=== PATIENT | female | born 1945 | race Caucasian/White ===

== ENCOUNTER 2023-09-01 09:46 | Emergency (ER) | payer OTHER ==
[2023-09-01 10:27] LABS: Absolute Eosinophils 0.1 K/uL (0-0.5); Absolute Lymphocytes (CBC) 0.5 K/uL (0.7-4.9); Absolute Monocytes 0.5 K/uL (0.1-1.3); Absolute Neutrophil 3.6 K/uL (1.8-8.0); Basophils % 0.5 % (0-1.3); Eosinophils % 2.2 % (0-4.4); Hematocrit 29.1 % (36.0-45.0); Hemoglobin 9.6 g/dL (12.0-15.0); MCH 27.5 pg (27.0-35.0); MCHC 32.9 g/dL (32.0-36.0); MCV 83.5 fL (80-100); MPV 8.1 fL (7.6-11.3); Monocytes % 9.8 % (3.3-12.3); Neutrophils % 76.5 % (41.7-73.7); Platelets 143 thou/uL (152-406); RBC Red Blood Cell Count 3.48 M/uL (3.86-4.86); Red Cell Distribution Width 15.2 % (12.1-15.2)
[2023-09-01 10:45] LABS: Anion Gap 5.7 mEq/L (5.0-15.0); Potassium 3.7 mEq/L (3.5-5.1); Troponin High Sensitivity 36.3 pg/mL (<58.9)
--- NOTE | 2023-09-01 10:45 | RAD REPORT ---
EXAM DESCRIPTION: CT - Head Brain Wo Cont - 09/01/2023 10:28 am CLINICAL HISTORY: DIZZINESS Headache, drowsiness dizziness COMPARISON: No comparisons TECHNIQUE: All CT scans are performed using dose optimization technique as appropriate and may inclu de automated exposure control or mA/KV adjustment according to patient size. FINDINGS: No intracranial hemorrhage, hydrocephalus or extra-axial fluid collection.No areas of brai n edema or evidence of midline shift. Vertebral atherosclerosis. The paranasal sinuses and mastoids are clear. The calvarium is intact. IMPRESSION: No acute intracranial abnormality.
--- NOTE | 2023-09-01 10:47 | RAD REPORT ---
EXAM DESCRIPTION: RAD - Chest Single View - 09/01/2023 10:37 am CLINICAL HISTORY: dizziness Chest pain. COMPARISON: <Comparisons> FINDINGS: Portable technique limits examination quality. Mild interstitial pulmonary edema. The heart is moderately enlarged. No displaced fractures. IMPRESSION: Mild CHF.
[2023-09-01 12:11] LABS: Specific Gravity 1.024 (1.005-1.030); Sqamous Epithelial <5 /HPF (None Seen); Urine Bacteria None Seen /HPF (<20); Urine Bilirubin NEGATIVE (Negative); Urine Blood Negative (Negative); Urine Clarity Clear (Clear); Urine Color Yellow (Yellow); Urine Culture Reflex Order NOT NEEDED; Urine Glucose NEGATIVE (Negative); Urine Ketones NEGATIVE (Negative); Urine Microscopic Reflex YN ORDER UMIC; Urine Mucus Slight /HPF (None Seen); Urine Nitrite NEGATIVE (Negative); Urine Protein NEGATIVE (Negative); Urine RBC <5 /HPF (None Seen); Urine Urobilinogen Normal (Normal); Urine WBC <5 /HPF (<5); Urine pH 5.5 (5.0-7.0)
--- NOTE | 2023-09-01 12:16 | EDPHYS ---
Physician Documentation [facility] Name: Maile Barrow Age: 78 yrs Sex: Female : 1945 Arrival Date: 09/01/2023 Time: 09:46 Bed 7 Private MD: ED Physician Marco Antonio Nicholson HPI: 08/31 10:08 This 78 yrs old Female presents to ER via EMS with complaints of Dizziness. jh7 10:08 The patient presents with dizziness, lightheadedness, feeling off balance. Onset: The jh7 symptoms/episode began/occurred acutely. Context: occurred at a care home or assisted living facility, occurred while the patient was on the toilet. Associated signs and symptoms: Pertinent positives: diaphoresis, shortness of breath, Pertinent negatives: abdominal pain, confusion, headache, palpitations, vomiting. 78-year-old female with a past medical history of hypertension, high cholesterol, and bilateral carotid endarterectomy this past Sunday presents to the ER for dizziness. She reports that she was on the toilet, attempted to get up, and suddenly became dizzy, lightheaded, diaphoretic, and short of breath. She reported that she stayed on the toilet to avoid falling and then called 911. 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 Denies chest pain, unilateral weakness, speech changes, N/V/D, syncope or visual changes.. Historical: - Allergies: 10:03 Codeine; ll1 - Home Meds: 10:03 Plavix Oral [Active]; tramadol Oral [Active]; mycophenolate mofetil 500 mg oral tablet ll1 [Active]; enalapril maleate 10 mg Oral tablet [Active]; Nexium Oral [Active]; aspirin 81 mg Oral capsule [Active]; Vitamin D Oral [Active]; multivitamin with minerals-folic acid-lycopene oral [Active]; hydrochlorothiazide 25 mg oral tablet [Active]; rosuvastatin 20 mg oral tablet [Active]; - PMHx: 10:03 Hypertensive disorder; Hypercholesterolemia; ll1 - PSHx: 10:03 R carotid blockage surgery; ll1 - Immunization history:: Adult Immunizations up to date. - Infectious Disease History:: Denies. - Social history:: Smoking status: Patient denies any tobacco usage or history of. ROS: 10:08 Constitutional: Per HPI jh7 Exam: 10:08 Constitutional: This is a well developed, well nourished patient who is awake, alert, jh7 and in no acute distress. Head/Face: Normocephalic, atraumatic. Eyes: Pupils equal round and reactive to light, extra-ocular motions intact. Lids and lashes normal. Conjunctiva and sclera are non-icteric and not injected. Cornea within normal limits. Periorbital areas with no swelling, redness, or edema. Neck: Trachea midline, no thyromegaly or masses palpated, and no cervical lymphadenopathy. Supple, full range of motion without nuchal rigidity, or vertebral point tenderness. No Meningismus. Cardiovascular: Regular rate and rhythm with a normal S1 and S2. No gallops, murmurs, or rubs. Normal PMI, no JVD. No pulse deficits. Respiratory: Lungs have equal breath sounds bilaterally, clear to auscultation and percussion. No rales, rhonchi or wheezes noted. No increased work of breathing, no retractions or nasal flaring. Abdomen/GI: Soft, non-tender, with normal bowel sounds. No distension or tympany. No guarding or rebound. No evidence of tenderness throughout. Back: No spinal tenderness. No costovertebral tenderness. Full range of motion. Skin: Warm, dry with normal turgor. Normal color with no rashes, no lesions, and no evidence of cellulitis. MS/ Extremity: Pulses equal, no cyanosis. Neurovascular intact. Full, normal range of motion. Neuro: Awake and alert, GCS 15, oriented to person, place, time, and situation. Cranial nerves II-XII grossly intact. Sensory grossly intact. Cerebellar exam normal. Vital Signs: 10:01 BP 120 / 57; Pulse 62; Resp 16; Temp 97.9; Pulse Ox 100% on 2 lpm NC; Weight 95.25 kg; ll1 Height 5 ft. 1 in. ; Pain 0/10; 12:17 BP 119 / 67; Pulse 61; Resp 16 S; Pulse Ox 100% on R/A; as6 10:01 Body Mass Index 39.68 (95.25 kg, 154.94 cm) ll1 10:01 Pain Scale: Adult ll1 MDM: 10:01 Patient medically screened. [facility] 12:15 Differential diagnosis: cardiac arrhythmia, CVA, generalized weakness, hypovolemia, jh7 idiopathic dizziness, near-syncope, sepsis, syncope, vertigo. Data reviewed: vital signs, nurses notes, lab test result(s), EKG, radiologic studies, CT scan, plain films. I considered the following discharge prescriptions or medication management in the emergency department Medications were administered in the Emergency Department. See MAR. Independent interpretation of the following test(s) in the Emergency Department EKG: See my EKG interpretation above. Historians other than the Patient: Daughter/Son: daughter. Care significantly affected by the following chronic conditions: Hypertension. Counseling: I had a detailed discussion with the patient and/or guardian regarding the historical points, exam findings, and any diagnostic results supporting the discharge/admit diagnosis, to return to the emergency department if symptoms worsen or persist or if there are any questions or concerns that arise at home. Response to treatment: the patient's symptoms have markedly improved after treatment. ED course: Patient stated that her symptoms were much improved at the time of discharge. All questions and concerns were addressed and the patient was able to ambulate to her wheelchair with a steady gait. 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 Advised to return to the ER with any new concerning symptoms.. 08/31 10:11 Order name: Basic Metabolic Panel; Complete Time: [facility] 08/31 10:11 Order name: CBC with Diff; Complete Time: [facility] 08/31 10:11 Order name: Troponin HS; Complete Time: [facility] 08/31 10:11 Order name: Urinalysis w/ reflexes; Complete Time: 12:13 [facility] 08/31 10:11 Order name: XRAY Chest (1 view); Complete Time: [facility] 08/31 10:11 Order name: CT Head Brain wo Cont; Complete Time: [facility] 08/31 10:11 Order name: Cardiac monitoring; Complete Time: [facility] 08/31 10:11 Order name: EKG - Nurse/Tech; Complete Time: : [facility] 08/31 10:11 Order name: IV Saline Lock; Complete Time: [facility] 08/31 10:11 Order name: Labs collected and sent; Complete Time: : [facility] 08/31 10:11 Order name: O2 Per Protocol; Complete Time: [facility] 08/31 10:11 Order name: O2 Sat Monitoring; Complete Time: : [facility] EC:13 Rate is 65 beats/min. Rhythm is regular. Left axis deviation noted. NE interval is [facility] normal at 146 msec. QRS interval is normal at 96 msec. QT interval is normal at 412 msec. No Q waves. T waves are Normal. No ST changes noted. Clinical impression: Sinus rhythm with premature atrial complexes . Administered Medications: No medications were administered Disposition Summary: 09/01/23 12:15 Discharge Ordered Notes: Location: Home [facility] Problem: new [facility] Symptoms: have improved [facility] Condition: Stable [facility] Diagnosis - Dizziness and giddiness [facility] - Vasovagal near syncope [facility] Followup: [facility] - With: Private Physician - When: 2 - 3 days - Reason: Recheck today's complaints Discharge Instructions: - Discharge Summary Sheet [facility] - Dizziness [facility] - Near-Syncope, [id number] [facility] Forms: - Medication Reconciliation Form [facility] - Patient Portal Instructions [facility] - Leadership Thank You Letter [facility] Signatures: Dispatcher [employer] Jorge Vargas RN RN ll1 Margie Hill FNP [employer] MANAGER [facility] Corrections: (The following items were deleted from the chart) 10:11 10:11 BASIC METABOLIC PANEL+C.LAB.BRZ ordered. EDWV EDMS 10:11 10:11 CBC+H.LAB.BRZ ordered. [facility] EDMS 10:11 10:11 Troponin High Sensitivity+C.LAB.BRZ ordered. [facility] EDMS 10:11 10:11 Chest Single View+RAD.RAD.BRZ ordered. EDWV EDMS 10:11 10:11 Head Brain Wo Cont+CT.RAD.BRZ ordered. EDWV EDMS 12:24 10:08 78-year-old female with a past medical history of hypertension, high cholesterol, jh7 and bilateral carotid endarterectomy this past Sunday presents to the ER for dizziness. She reports that she was on the toilet, attempted to get up, and suddenly became dizzy, lightheaded, diaphoretic, and short of breath. She reported that she stayed on the toilet to avoid falling and then called 911. 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 Denies chest pain, unilateral weakness, speech changes, or visual changes.. jh7
--- NOTE | 2023-09-01 12:16 | ER ---
Nurse's Notes [facility] Name: Maile Barrow Age: 78 yrs Sex: Female : 1945 Arrival Date: 09/01/2023 Time: 09:46 Bed 7 Private MD: Diagnosis: Dizziness and giddiness;Vasovagal near syncope Presentation: 08/31 10:01 Chief complaint: Patient states: Still lightheaded and dizzy. EMS states: Found on ll1 toilet dizzy, lightheaded, weak, sweating. Nausea is better now. 20 G L FA with Zofran 4MG IV given. BP 104/?? O2 sat. 80's, "but has Raynaud's". Coronavirus screen: Client denies travel out of the [place] in the last 14 days. At this time, the client does not indicate any symptoms associated with coronavirus-19. Ebola Screen: Patient denies travel to an Ebola-affected area in the 21 days before illness onset. Initial Sepsis Screen: Does the patient meet any 2 criteria? No. Patient's initial sepsis screen is negative. Does the patient have a suspected source of infection? No. Patient's initial sepsis screen is negative. Risk Assessment: Do you want to hurt yourself or someone else? Patient reports no desire to harm self or others. Onset of symptoms was September 01, 2023. 10:01 Method Of Arrival: EMS 1 10:01 Acuity: CAPRI 3 ll1 Historical: - Allergies: 10:03 Codeine; ll1 - Home Meds: 10:03 Plavix Oral [Active]; tramadol Oral [Active]; mycophenolate mofetil 500 mg oral tablet ll1 [Active]; enalapril maleate 10 mg Oral tablet [Active]; Nexium Oral [Active]; aspirin 81 mg Oral capsule [Active]; Vitamin D Oral [Active]; multivitamin with minerals-folic acid-lycopene oral [Active]; hydrochlorothiazide 25 mg oral tablet [Active]; rosuvastatin 20 mg oral tablet [Active]; - PMHx: 10:03 Hypertensive disorder; Hypercholesterolemia; ll1 - PSHx: 10:03 R carotid blockage surgery; ll1 - Immunization history:: Adult Immunizations up to date. - Infectious Disease History:: Denies. - Social history:: Smoking status: Patient denies any tobacco usage or history of. Screenin:08 [facility] ED Fall Risk Assessment (Adult) History of falling in the last 3 months, ll1 including since admission No falls in past 3 months (0 pts) Confusion or Disorientation No (0 pts) Intoxicated or Sedated No (0 pts) Impaired Gait Yes (1 pt) Mobility Assist Device Used Yes (1 pt) Altered Elimination No (0 pt) Score/Fall Risk Level 0 - 2 = Low Risk Maintained a safe environment, Hourly rounding (assess needs \\T\\ fall precautionary measures) done. Abuse screen: Denies threats or abuse. Nutritional screening: No deficits noted. Tuberculosis screening: No symptoms or risk factors identified. Assessment: 10:07 General: Appears uncomfortable, Behavior is calm, cooperative, appropriate for age. ll1 Pain: Denies pain. Neuro: Reports dizziness, weakness. GI: Reports nausea. 12:05 Reassessment: No changes from previously documented assessment. Patient and/or family ll1 updated on plan of care and expected duration. Pain level reassessed. Patient is alert, oriented x 3, equal unlabored respirations, skin warm/dry/pink. Vital Signs: 10:01 BP 120 / 57; Pulse 62; Resp 16; Temp 97.9; Pulse Ox 100% on 2 lpm NC; Weight 95.25 kg; ll1 Height 5 ft. 1 in. ; Pain 0/10; 12:17 BP 119 / 67; Pulse 61; Resp 16 S; Pulse Ox 100% on R/A; as6 10:01 Body Mass Index 39.68 (95.25 kg, 154.94 cm) ll1 10:01 Pain Scale: Adult ll1 ED Course: 09:58 Arm band placed on Patient placed in an exam room, on a stretcher. ll1 10:00 Patient arrived in ED. ll1 10:00 Maintain EMS IV. Dressing intact. Good blood return noted. Site clean \\T\\ dry. Gauge \\T\\ ll 1 site: 20 G L AC. 10:00 Initial lab(s) drawn, by me, sent to lab. hb 10:01 Margie Hill FNP is PHCP. jh7 10:01 Marco Antonio Nicholson MD is Attending Physician. 7 10:03 Triage completed. ll1 10:08 Patient has correct armband on for positive identification. Bed in low position. ll1 Provided Education on: ER procedures and process. Client placed on continuous cardiac and pulse oximetry monitoring. NIBP monitoring applied. 10:21 Jorge Arnett, RN is Primary Nurse. ll1 10:29 CT Head Brain wo Cont In Process Unspecified. EDMS 10:39 XRAY Chest (1 view) In Process Unspecified. EDMS 12:02 Urinalysis w/ reflexes Sent. hb 12:02 Urine collected: straight cath specimen, clear, Amount Returned: 100mL. hb 12:11 Urinalysis w/ reflexes Sent. ll1 12:18 No provider procedures requiring assistance completed. as6 12:28 IV discontinued, intact, bleeding controlled, No redness/swelling at site. Pressure as6 dressing applied. Administered Medications: No medications were administered Medication: 10:08 VIS not applicable for this client. ll1 Outcome: 12:15 Discharge ordered by . sandy7 12:21 Condition: stable as6 12:21 Discharge instructions given to patient, family, Instructed on discharge instructions, follow up and referral plans. Demonstrated understanding of instructions, follow-up care, 12:33 Discharged to home via wheelchair, with family, as6 12:34 Patient left the ED. as6 Signatures: Dispatcher [employer] EDLA Daxa Mix RN RN Jorge Arnett, RN RN 1 Charlie Cruz, KAMILA RN as6 Margie Hill, CARRIAGE RIDER [employer] [facility]
[2023-09-01 12:55] VITALS: BP 119/67; TEMP 97.9; O2SAT 100
--- NOTE | 2023-09-03 13:24 | EKG ---
Test Date: 2023-09-01 Test Time: 10:13:53 Sausage Maker: ILENE MEASUREMENT RESULTS: Intervals: Rate: 65 [place]: 146 QRSD: 96 QT: 412 QTc: 428 [place]: P: 44 NJ: 146 QRS: -31 T: 48 INTERPRETIVE STATEMENTS: Sinus rhythm with premature atrial complexes Left axis deviation Abnormal ECG No previous ECG available for comparison Electronically Signed On 09-03-23 13:18:09 CDT by Terell Morfin
== END 2023-09-01 12:34 | disposition home or self-care (01) ==
LOC: ER 09:46
DX: R42 Dizziness and giddiness (principal); R55 Syncope and collapse; I10 Essential (primary) hypertension; Z79.01 Long term (current) use of anticoagulants; Z88.5 Allergy status to narcotic agent
CPT/HCPCS: 36415; 70450; 71045; 80048; 81001; 84484; 85025; 93005; 99284